=== PATIENT | female | born 1990 | race Caucasian/White ===

== ENCOUNTER 2016-11-19 21:31 | Emergency (ER) | payer OTHER ==
[2016-11-19 21:39] VITALS: RESP 18; O2SAT 100
[2016-11-19] MEDS ORDERED: TRAMADOL HYDROCHLORIDE 50 MG TAB PO ONE (21:50)
[2016-11-19] MEDS ORDERED: TRAMADOL HYDROCHLORIDE 50 MG TAB ONE (21:54)
[2016-11-19 21:58] VITALS: BP 117/81; PULSE 74; TEMP 98.6
== END 2016-11-19 22:02 | disposition home or self-care (01) | DRG 605 ==
LOC: ED 21:31
DX: S50.02XA Contusion of left elbow, initial encounter (principal); W22.8XXA Striking against or struck by other objects, initial encounter
CPT/HCPCS: 99282

== ENCOUNTER 2018-04-26 22:04 | Emergency (ER) | payer BC, OTHER ==
[2018-04-26 22:05] VITALS: O2SAT 100
[2018-04-26 22:24] VITALS: RESP 16; TEMP 98.6
[2018-04-26 22:53] LABS: APPEARANCE,URINE Clear; BILIRUBIN,URINE NEGATIVE (NEGATIVE); COLOR,URINE Yellow; GLUCOSE, URINE (UA) NEGATIVE (NEGATIVE); KETONES,URINE NEGATIVE (NEGATIVE); LEUKOCYTE ESTERASE ,URINE NEGATIVE (NEGATIVE); NITRATE,URINE POSITIVE (NEGATIVE); OCCULT BLOOD,URINE TRACE INTACT (NEG-TRACE); UROBILINOGEN,URINE 0.2 (0.2-1.0 EU)
[2018-04-26 23:06] LABS: RBC,URINE 0-2 (0-3AV/HPF)
[2018-04-26 23:07] LABS: BACTERIA 3+ (< 1+); CRYSTALS NEGATIVE (0-3 AVE/HPF); WBC,URINE 0-2 (0-5AV/HPF)
[2018-04-26] MEDS ORDERED: SULFAMETHOXAZOLE/TRIMETHOPRI 800/160 MG PO ONE (23:25)
[2018-04-26] MEDS ORDERED: SULFAMETHOXAZOLE/TRIMETHOPRI 800/160 MG ONE (23:37)
[2018-04-27 00:30] VITALS: BP 144/89; PULSE 48
== END 2018-04-26 23:46 | disposition home or self-care (01) ==
LOC: ED 22:04
DX: N39.0 Urinary tract infection, site not specified (principal); R30.9 Painful micturition, unspecified
CPT/HCPCS: 81001; 87077; 87088; 87186; 99282; 99283; A9270-GY